=== PATIENT | female | born 1975 | race Caucasian/White ===

== ENCOUNTER → 2024-12-19 | Outpatient (CLI) | payer OTHER, SELFPAY ==
--- NOTE | 2024-12-19 13:09 | ECHOD_ITS ---
Reason For Study Reason For Study: HTN Procedure This was a 2D Doppler, Color Flow transthoracic echocardiogram. Exam performed in department. Left Ventricle Normal LV size. Left ventricular systolic function is normal. The left ventricular ejection fraction is 65 %. No regional wall motion abnormalities noted. Right Ventricle Normal RV size. Normal systolic function. Atria Normal left atrium. Normal right atrium. Mitral Valve Normal mitral valve. Tricuspid Valve Normal tricuspid valve. Aortic Valve Trisinus/trileaflet aortic valve. Pulmonic Valve Normal pulmonic valve. Great Vessels Normal aortic root. The pulmonary artery is normal size. Inferior vena cava collapse with respiration. Pericardium/Pleural No pericardial effusion. MMode/2D Measurements & Calculations LVIDd: 3.7 cm IVSd: 0.73 cm Ao root diam: 3.0 cm LVIDs: 2.4 cm LVPWd: 0.73 cm RVDd: 2.6 cm FS: 35.7 % LAV(MOD-bp): 31.0 ml LVAd ap4: 20.1 cm2 LVAd ap2: 19.4 cm2 LAV(MOD-bp) Indexed: 20.3 ml/m2 LVLd ap4: 6.9 cm LVLd ap2: 7.2 cm LAV(MOD-sp2): 31.1 ml EDV(MOD-sp4): 50.2 ml EDV(MOD-sp2): 44.6 ml LAV(MOD-sp4): 31.1 ml EDV(sp4-el): 49.8 ml EDV(sp2-el): 44.4 ml LVAs ap4: 11.3 cm2 LVAs ap2: 10.4 cm2 LVLs ap4: 6.1 cm LVLs ap2: 5.7 cm ESV(MOD-sp4): 18.7 ml ESV(MOD-sp2): 15.7 ml ESV(sp4-el): 17.7 ml ESV(sp2-el): 16.0 ml EF(MOD-sp4): 62.8 % EF(MOD-sp2): 64.8 % EF(sp4-el): 64.5 % SV(MOD-sp4): 31.5 ml SV(MOD-sp2): 28.9 ml SV(sp4-el): 32.1 ml SI(MOD-sp4): 20.6 ml/m2 SI(MOD-sp2): 18.9 ml/m2 LA A4 area: 13.9 cm2 LA dimension(2D): 2.6 cm RA A4 area: 10.0 cm2 TAPSE: 1.7 cm Doppler Measurements & Calculations Lat Peak E' Newton: 11.3 cm/sec Med Peak E' Newton: 11.6 cm/sec MV V2 max: 83.8 cm/sec MV max P.8 mmHg MV V2 mean: 59.6 cm/sec MV mean P.6 mmHg MV V2 VTI: 14.5 cm MV P1/2t max newton: 83.0 cm/sec Ao V2 max: 100.8 cm/sec LV V1 max: 89.6 cm/sec MV P1/2t: 53.3 msec Ao max P.1 mmHg LV V1 max P.2 mmHg Ao V2 mean: 79.7 cm/sec LV V1 mean P.0 mmHg MV dec slope: 456.6 cm/sec2 Ao mean P.8 mmHg LV V1 mean: 67.7 cm/sec MVA(P1/2t): 4.1 cm2 Ao V2 VTI: 24.3 cm LV V1 VTI: 20.4 cm AV (velocity ratio): 0.84 PA V2 max: 74.6 cm/sec PA V2 mean: 60.1 cm/sec ECHO/Echo Complete Interpretation Summary Normal LV size. Left ventricular systolic function is normal. The left ventricular ejection fraction is 65 %. Structurally normal valves. Ordering Physician: Jean-Paul Ludwig Referring Physician: Roque Guo Performed By: Jordyn Valle, RDCS, RVT
--- NOTE | 2024-12-22 18:48 | STRESSREP ---
Stress Test Report Exercise stress test. 49-year-old lady with a history of chest pain Stress protocol: Resting EKG demonstrates normal sinus rhythm with a rate of 75 bpm resting blood pressure is 124/82 mmHg. The patient exercised according to the regular [facility] protocol for a total duration of 9 minutes attaining a maximum heart rate of 157 bpm which was 92% of maximum predicted heart rate; the maximum workload was 10.1 metabolic equivalents. At rest there were no ST or T wave changes noted to suggest ischemia and at peak exercise upsloping ST changes only were noted which did not meet the criteria for ischemia. No clinical angina was noted the test was terminated due to the target heart rate being achieved/fatigue. The peak blood pressure was 148/78 mmHg. Rate-pressure product was 22,300. Conclusion: Stress test with no EKG changes suggestive of ischemia. No arrhythmias noted. Good functional capacity.
== END | disposition home or self-care (01) ==
PROVIDERS: PCP Internal Medicine; Referring Provider Internal Medicine Cardiovascular Disease; Visit Provider Internal Medicine Cardiovascular Disease
DX: R94.31 Abnormal electrocardiogram [ECG] [EKG] (principal); I10 Essential (primary) hypertension
CPT/HCPCS: 93017; 93306